=== PATIENT | female | born 1995 | race Two or more races ===

== ENCOUNTER 2020-08-23 01:28 | Emergency (ER) | payer MEDICAID, OTHER ==
[~2020-08-23] VITALS: Ht 172.7 cm; Wt 68.9 kg
[2020-08-23 02:07] LABS: Basophils # (auto) 0 10 ^3/uL (0-0.2); Basophils % (auto) 0.2 % (0.0-2.0); Eosinophils # (auto) 0 10 ^3/uL (0-0.8); Eosinophils % (auto) 0.3 % (0.0-7.0); Hematocrit 40.6 % (36.0-46.0); Lymphocytes # (auto) 1.8 10 ^3/uL (0.4-5.4); Lymphocytes % (auto) 15.1 % (10.0-50.0); Mean Corpuscular Hemoglobin 30.9 pg (28.0-32.0); Mean Corpuscular Hgb Conc. 34.5 g/dL (32.0-36.0); Mean Corpuscular Volume 89.7 fL (80.0-100.0); Monocytes # (auto) 0.5 10 ^3/uL (0-1.3); Monocytes % (auto) 4.2 % (0.0-12.0); Neutrophils # (auto) 9.6 10 ^3/uL (1.6-8.6); Neutrophils % (auto) 80.2 % (37.0-80.0); Platelet Count (auto) 188 10^3/uL (140-450); Red Blood Cells 4.53 10^6/uL (4.0-5.20); Red Cell Distribution Width 13.3 % (11.8-14.3)
[2020-08-23 02:24] LABS: Albumin 3.9 g/dL (3.4-5.0); BUN/Creatinine Ratio 19.2; Calcium 9.2 mg/dL (8.5-10.1); Potassium 3.9 mmol/L (3.5-5.1)
[2020-08-23 02:27] LABS: Bilirubin, Total 0.2 mg/dL (0.2-1.0)
[2020-08-23 02:46] LABS: Urine Bacteria FEW /hpf (None Seen); Urine Blood 3+ /uL (Negative); Urine Mucus FEW (None Seen); Urine Specific Gravity 1.014 (1.001-1.035); Urine WBC 11 /hpf (0 - 5)
[2020-08-23 04:00] VITALS: BP 102/60
== END 2020-08-23 06:25 | disposition home or self-care (01) ==
LOC: ER 01:28
DX: O23.41 Unspecified infection of urinary tract in pregnancy, first trimester (principal); Z3A.10 10 weeks gestation of pregnancy
CPT/HCPCS: 36415; 76801; 80053; 81001; 84702; 85025

== ENCOUNTER 2021-03-21 19:11 | Inpatient (IN) | payer MEDICAID ==
[~2021-03-21] VITALS: Ht 172.7 cm; Wt 81.6 kg
[2021-03-21] MEDS ORDERED: PREN-96 OR (19:23)
[2021-03-21] MEDS ORDERED: LIDOCAINE 2%HCL (LOCAL ANESTH.) INJ 20ML MDV IJ PRN (19:45)
[2021-03-21] MEDS ORDERED: BUTORPHANOL TARTRATE 2 MG/1 ML VIAL IV PRN ×2 (19:45)
[2021-03-21] MEDS ORDERED: PROMETHAZINE HCL 25 MG/ML 1ML IV PRN (19:45)
[2021-03-21 20:37] LABS: Basophils # (auto) 0 10 ^3/uL (0-0.2); Basophils % (auto) 0.1 % (0.0-2.0); Eosinophils # (auto) 0 10 ^3/uL (0-0.8); Hematocrit 30.5 % (36.0-46.0); Hemoglobin 10.4 g/dL (12.2-16.2); Lymphocytes # (auto) 0.5 10 ^3/uL (0.4-5.4); Mean Corpuscular Hemoglobin 29.6 pg (28.0-32.0); Mean Corpuscular Volume 87.1 fL (80.0-100.0); Monocytes # (auto) 0.6 10 ^3/uL (0-1.3); Monocytes % (auto) 8.4 % (0.0-12.0); Neutrophils # (auto) 5.7 10 ^3/uL (1.6-8.6); Neutrophils % (auto) 83.5 % (37.0-80.0); Nucleated Red Blood Cells % 0.1 %; Red Cell Distribution Width 14.6 % (11.8-14.3); White Blood Cell 6.8 10^3/uL (4.4-10.8)
[2021-03-21 20:41] LABS: Urine Bacteria NONE SEEN /hpf (None Seen); Urine Blood Negative /uL (Negative); Urine Mucus FEW (None Seen); Urine WBC 5 /hpf (0 - 5)
[2021-03-21 20:54] LABS: Albumin 2.9 g/dL (3.4-5.0); Calcium 8.3 mg/dL (8.5-10.1); INR 0.94 (0.9-1.15); Partial Thromboplastin Time 27.8 sec (23.6-33.0); Potassium 3.7 mmol/L (3.5-5.1)
[2021-03-21 20:58] LABS: BUN/Creatinine Ratio 19.7; Bilirubin, Total 0.2 mg/dL (0.2-1.0); Total Protein 6.4 g/dL (6.4-8.2)
[2021-03-21 20:59] LABS: Amphetamine Screen, Urine NEGATIVE (NEGATIVE); Barbiturate Scree,Urine NEGATIVE (NEGATIVE); Benzodiazephine Screen, Urine NEGATIVE (NEGATIVE); Cannabinoid Screen, Urine NEGATIVE (NEGATIVE); Cocaine Screen, Urine NEGATIVE (NEGATIVE); Opiate Scree,Urine NEGATIVE (NEGATIVE); Phencyclidine Screen, Urine NEGATIVE (NEGATIVE)
[2021-03-21 21:05] LABS: Alcohol, Urine < 3.0 mg/dL (0-10)
[2021-03-21] MEDS ORDERED: LACT. RINGERS/OXYTOCIN 20UNITS 500 ML IV ONE ×2 (22:00→22:30)
[2021-03-21] MEDS ORDERED: TERBUTALINE SULFATE 1 MG/ML 1ML VIAL SC PRN (22:00)
[2021-03-21] MEDS ORDERED: LACT. RINGERS/OXYTOCIN 20UNITS 1,000 ML IV SCH (22:00)
[2021-03-21] MEDS: PHISODERM TOP SOLN 240ML BTL TOP PRN (22:59)
[2021-03-21] MEDS: DERMOPLAST 60ML BOTTLE TOP PRN (22:59)
[2021-03-21] MEDS: WITCH HAZEL-GLYCERIN PAD TOP PRN (22:59)
[2021-03-21] MEDS: LACTATED RINGER'S 1,000 ML IV SCH (23:01)
[2021-03-22] MEDS ORDERED: CARBOPROST TROMETHAMINE 250 MCG/1ML VIAL IM PRN (06:30)
[2021-03-22] MEDS ORDERED: miSOPROStol 100 mcg TAB SL PRN (06:30)
[2021-03-22] MEDS ORDERED: METHYLERGONOVINE MALEATE 0.2 MG/ML AMP IM PRN (06:30)
[2021-03-22] MEDS ORDERED: ONDANSETRON HCL 4 MG/2 ML VIAL IV PRN (06:30)
[2021-03-22] MEDS ORDERED: miSOPROStol 100 mcg TAB PR PRN (06:30)
[2021-03-22] MEDS ORDERED: TRANEXAMIC ACID 1,000 MG in SODIUM CHL 0.9% 100 ML IV ONE (06:30)
[2021-03-22] MEDS: LACTATED RINGER'S 1,000 ML IV SCH (06:32)
[2021-03-22] MEDS: WITCH HAZEL-GLYCERIN PAD TOP PRN (08:23)
[2021-03-22] MEDS: PHISODERM TOP SOLN 240ML BTL TOP PRN (08:23)
[2021-03-22] MEDS: DERMOPLAST 60ML BOTTLE TOP PRN (08:24)
[2021-03-22] MEDS ORDERED: DIPHENOXYLATE W/ATROPINE 2.5 MG TAB PO SCH (10:00)
[2021-03-22 10:32] VITALS: BP 118/60
[2021-03-22] MEDS ORDERED: ACETAMINOPHEN 325 MG TAB PO PRN (10:45)
[2021-03-22] MEDS ORDERED: ONDANSETRON ODT 4 MG TAB PO PRN (10:45)
[2021-03-22] MEDS ORDERED: IBUPROFEN 600 MG TAB PO PRN (10:45)
[2021-03-22] MEDS: IBUPROFEN 800 MG TAB PO SCH ×2 (12:00→18:29)
[2021-03-22 14:59] VITALS: BP 115/70
[2021-03-22 19:00] VITALS: BP 107/58
[2021-03-22] MEDS ORDERED: DOCUSATE SOD 100 MG CAP PO SCH (22:00)
[2021-03-22 23:00] VITALS: BP 108/73
[2021-03-23 03:13] VITALS: BP 94/54
[2021-03-23] MEDS: IBUPROFEN 800 MG TAB PO SCH ×2 (06:38)
[2021-03-23 07:19] VITALS: BP 101/62
[2021-03-23 08:06] LABS: RPR Non Reactive (Non Reactive)
[2021-03-23 11:00] VITALS: BP 91/64
[2021-03-23 15:00] VITALS: BP 106/64
== END 2021-03-23 16:15 | disposition home or self-care (01) | DRG 560 ==
LOC: OBSVTOIN 19:11 → LDRP 19:11
PROVIDERS: ADMIT Obstetrics & Gynecology; ATTEND Obstetrics & Gynecology
PROC: 10E0XZZ Delivery of Products of Conception, External Approach (ICD-10-PCS; principal; 2021-03-22)
PROC: 0KQM0ZZ Repair Perineum Muscle, Open Approach (ICD-10-PCS; 2021-03-22)
DX: O70.1 Second degree perineal laceration during delivery (principal); Z37.0 Single live birth; Z20.822 Contact with and (suspected) exposure to COVID-19; Z3A.39 39 weeks gestation of pregnancy
CPT/HCPCS: 36415; 59025; 59409; 80053; 80307; 81001; 81002; 85025; 85610; 85730; 86592; 86850; 86900; 86901; 87426; 94760; 96360; 96361; 96365; 96366; G0378; J2590